=== PATIENT | female | born 1985 | race African-American/Black ===

== ENCOUNTER 2023-07-01 10:03 | Observation (INO) | payer BC, SELFPAY ==
--- NOTE | 2023-07-01 10:03 | OBADM ---
This patient, Natty Hunter, admitted to the OB room Labor/Delivery/Recovery 104 for observation. Patient/family oriented to hospital policies and general routines including ID bracelet, bed and alarms, visiting hours, pain management, procedures, bathroom and other care routines, personal items, smoking policy, room service/diet, and visiting hours. Patient/Family are encouraged to report perceived risks to care and to ask questions if they do not understand what they are told or what they should do.
--- NOTE | 2023-07-02 06:25 | PM.OBTRLD ---
OB - Triage/Final Diagnosis Visit Information Date of evaluation: 07/01/23 Reason for evaluation: threatened labor Comments/Additional reasons for admission: I have assessed the risk for this patient, Natty Hunter, and determined that she would benefit from observation care.
== END 2023-07-01 12:41 | disposition home or self-care (01) ==
PROVIDERS: Admitting Provider Obstetrics & Gynecology; PCP Internal Medicine Cardiovascular Disease; Visit Provider Obstetrics & Gynecology
DX: O47.1 False labor at or after 37 completed weeks of gestation (principal); Z3A.39 39 weeks gestation of pregnancy
CPT/HCPCS: G0378; G0379

== ENCOUNTER 2023-07-07 05:07 | Inpatient (IN) | payer BC, SELFPAY ==
[2023-07-07] VITALS (150 sets, daily range): BP systolic 75–164; BP diastolic 45–142; PULSE 65–150; RESP 20; TEMP 36.1–36.9; O2SAT 98–100; BMI 40.0
--- NOTE | 2023-07-07 05:39 | ADMGEN ---
This patient, Natty Hunter, was admitted to Labor/Delivery/Recovery 104-00. Patient/family oriented to hospital policies and general routines including ID bracelet, bed and alarms, visiting hours, pain management, procedures, bathroom and other care routines, personal items, smoking policy, room service/diet, and visiting hours. Information on how to activate the Rapid Response Team has been discussed. Patient/Family are encouraged to report perceived risks to care and to ask questions if they do not understand what they are told or what they should do.
[2023-07-07 05:59] LABS: Basophils Percent Auto 0.3 % (0.2-1.2); Eosinophils Absolute Auto 0.1 K/mm3 (0-0.3); Eosinophils Percent Auto 0.6 % (0-4.4); Hemoglobin 12.4 g/dL (12.0-15.0); Immature Granulocyte Absolute 0.03 K/mm3 (0.00-0.031); Immature Granulocyte Percent A 0.4 % (0-0.5); Lymphocytes Absolute Auto 1.68 K/mm3 (0.9-3.2); Lymphocytes Percent Auto 21.7 % (18.3-44.2); Mean Corpuscular Hemoglobin 25.3 pg (26-34); Mean Corpuscular Volume 81.5 fl (80-100); Mean Platelet Volume 10.5 fl (7.4-10.4); Monocytes Absolute Auto 0.5 K/mm3 (0.1-0.6); Monocytes Percent Auto 5.9 % (2.6-8.5); Neutrophils Absolute Auto 5.5 K/mm3 (1.3-6.7); Neutrophils Percent Auto 71.1 % (45.5-73.1); Platelet Count Result 280 k/mm3 (150-375); Red Blood Count 4.91 M/mm3 (4.2-5.4); Red Cell Distribution Width 17.2 % (11.5-14.5); White Blood Count 7.7 K/mm3 (4.5-10.0)
--- NOTE | 2023-07-07 06:19 | P.HP_ITS ---
H&P: HPI History of Present Illness Date/Time: 07/07/23 06:19 Chief Complaint: Eight Narrative: this is a 37-year-old 4 para 3 whose EDC is 07/04/2023 confirmed by 9 week ultrasound presents at 40 and 3 7th weeks gestation for induction of labor. has been uncomplicated. Her cervix is favorable. She is negative for group B strep PMFSH Family History Family History Grandparent Diabetes mellitus Grandparent Diabetes mellitus Social History Social History Smoking status: Never smoker Substance use: never Do You Feel Safe in your Home?: Yes Lack of Transportation: No Lack of Food: Never True Current Housing: I Have Housing Concerned About Future Housing: No Difficulty Paying Gas/Electric Bills: No Difficulty Paying for Meds: No Currently Unemployed: No Education: Bachelor's Degree Difficulty w/ Childcare or Family Care: No Spiritual care concerns: No Meds Home Medications and Allergies Home Medications Medication Instructions Recorded Confirmed Type ascorbic acid (vitamin C) 500 mg 500 mg PO DAILY 06/03/23 07/07/23 History chewable tablet cholecalciferol (vitamin D3) 125 125 mcg PO 3XW 06/03/23 07/07/23 History mcg (5,000 unit) capsule ferrous sulfate 325 mg (65 mg 325 mg PO 3XW 06/03/23 07/07/23 History iron) tablet prenat.vits,pool,vuw-pzrk-eounu 1 tablet PO DAILY 06/03/23 07/07/23 History Allergies Allergy/AdvReac Type Severity Reaction Status Date / Time aspirin Allergy Intermediate Rash Verified 07/07/23 05:40 pineapple Allergy Intermediate Rash Verified 07/07/23 05:40 Vital Signs Vital Signs - 24 hr 07/07/23 05:31 07/07/23 06:01 07/07/23 05:28 Pulse Rate 116 H 88 Blood Pressure 114/90 106/65 Oxygen Delivery Room Air Exam Const: General: cooperative, healthy appearing and comfortable Nutritional Appearance: average body habitus Orientation/consciousness: oriented to person, oriented to place and oriented to time HENMT: Head: normal to inspection Resp: Effort & Inspection: normal respiratory effort Cardio: Rate: regular rate Rhythm: regular rhythm Heart sounds: S1 breann l heart sound present and S2 normal heart sound present GI: Inspection: normal to inspection ( soft gravid uterus) : External Female Exam: normal external appearance Speculum Exam - Vagina: normal appearance of the vagina Speculum Exam - Cervix: normal appearance of the cervix ( cervix 3/75/1. AROM with minimal fluid. FHTs reassuring) H&P: Results Labs Labs: Short CBC 07/07/23 Range/Units 05:29 WBC 7.7 (4.5-10.0) K/mm3 Hgb 12.4 (12.0-15.0) g/dL Hct 40.0 (37.0-47.0) % Plt Count 280 (150-375) k/mm3 Assessment and Plan Assessment and plan (1) Term : Code(s): Z34.90 - Encounter for supervision of normal , unspecified, unspecified trimester Status: Acute Plan medical induction of labor. Spontaneous vaginal delivery expected. She is an epidural candidate
[2023-07-07 06:46] LABS: HIV 1/2 Ab P24 Ag Result Negative (Negative)
--- NOTE | 2023-07-07 11:36 | PM.OBPNLAB ---
Pain Control Date/time seen: 07/07/23 11:36 Pain control: tolerating well Comments: ucs increasing, wants epidural then low dose pit
[2023-07-07] MEDS: LACTATED RINGERS 1,000 ML 125 ML IV CONT ×2 (11:48→12:45)
--- NOTE | 2023-07-07 11:57 | WPDANESEPP ---
Anes - Eval Pre Procedure Procedure: labor epidural Date/Time: 07/07/23 11:57 Surgeon: Nadira Jones Preop Diagnosis: Pain during labor Pre Op Diagnosis: IOL Patient Data Age: 37 Gender: F Height: 1.5 m Weight: 90 kg Last Vital Signs Temp 36.4 C 07/07/23 10:13 Pulse 90 07/07/23 10:01 BP 113/73 07/07/23 10:01 O2 Del Method Room Air 07/07/23 05:28 Allergies Allergy/AdvReac Type Severity Reaction Status Date / Time aspirin Allergy Intermediate Rash Verified 07/07/23 05:40 pineapple Allergy Intermediate Rash Verified 07/07/23 05:40 Home Medications Medication Instructions Recorded Confirmed Type ascorbic acid (vitamin C) 500 mg 500 mg PO DAILY 06/03/23 07/07/23 History chewable tablet cholecalciferol (vitamin D3) 125 125 mcg PO 3XW 06/03/23 07/07/23 History mcg (5,000 unit) capsule ferrous sulfate 325 mg (65 mg 325 mg PO 3XW 06/03/23 07/07/23 History iron) tablet prenat.vits,pool,ahy-kdrg-bzpog 1 tablet PO DAILY 06/03/23 07/07/23 History Laboratory Tests 07/07/23 05:29 WBC 7.7 K/mm3 (4.5-10.0) RBC 4.91 M/mm3 (4.2-5.4) Hgb 12.4 g/dL (12.0-15.0) Hct 40.0 % (37.0-47.0) MCV 81.5 fl (80-100) MCH 25.3 L pg (26-34) MCHC 31.0 L g/dl (32-36) RDW 17.2 H % (11.5-14.5) Plt Count 280 k/mm3 (150-375) MPV 10.5 H fl (7.4-10.4) Immature Gran % (Auto) 0.4 % (0-0.5) Neut % (Auto) 71.1 % (45.5-73.1) Lymph % (Auto) 21.7 % (18.3-44.2) [place] % (Auto) 5.9 % (2.6-8.5) Eos % (Auto) 0.6 % (0-4.4) Baso % (Auto) 0.3 % (0.2-1.2) Lymph # (Auto) 1.68 K/mm3 (0.9-3.2) [place] # (Auto) 0.5 K/mm3 (0.1-0.6) Eos # (Auto) 0.1 K/mm3 (0-0.3) Baso # (Auto) 0.0 K/mm3 (0.0-0.1) Abs Immat Gran (auto) 0.03 K/mm3 (0.00-0.031) Absolute Neuts (auto) 5.5 K/mm3 (1.3-6.7) Absolute Nucleated RBC 0.0 K/mm3 (0.0-0.012) Nucleated RBC % 0.0 % (0.0-0.2) RPR Pending HIV 1&2 Ab/P24 Ag 4thGn Negative (Negative) Blood Type O Positive Antibody Screen Negative Patient hx anesthesia problems: none Family hx anesthesia problems: none Results Review: All pre-operative results and documents have been reviewed as part of the pre-operative evaluation. [facility] Family History Family History Grandparent Diabetes mellitus Grandparent Diabetes mellitus Social History Social History Smoking status: Never smoker Substance use: never Do You Feel Safe in your Home?: Yes Lack of Transportation: No Lack of Food: Never True Current Housing: I Have Housing Concerned About Future Housing: No Difficulty Paying Gas/Electric Bills: No Difficulty Paying for Meds: No Currently Unemployed: No Education: Bachelor's Degree Difficulty w/ Childcare or Family Care: No Spiritual care concerns: No Exam Day of Procedure 07/07/23 11:57 Patient weight: obese Heart: regular rate and rhythm Lungs: normal air movement Airway: Mallampati scale class II Neurological: alert and oriented
[2023-07-07] MEDS: OXYTOCIN 30 UNITS/NS 500 ML 30 UNITS/500 ML BAG 999 UNITS IV CONT (13:23)
[2023-07-07 14:02] LABS: Rapid Plasma Reagin Non-Reactive (NonReactive)
--- NOTE | 2023-07-07 16:20 | PM.OBPNLAB ---
Pain Control Date/time seen: 07/07/23 16:20 Pain control: tolerating well and epidural Pelvic Exam Dilation (cm): 5 Effacement (%): 90 station: 0 Amniotic membrane status: Leaking Contractions Monitor mode: Internal
--- NOTE | 2023-07-07 17:42 | PM.OBPRVD ---
OB - Vaginal Delivery Note Procedure Delivery date: 07/07/23 Events: Elective Induction of Labor Induction method: AROM Delivery augmentation: Pitocin Delivery monitor: External FHT and Internal Uterine Route of delivery: Episiotomy description: None Laceration Description: None Quantitative Blood Loss (ml): 61 Anesthesia type: Epidural Disposition: Floor Baby Date of : 07/07/23 Time of : 17:32 Weeks of gestation at delivery: 40 gender: Male presentation: vertex position: Right Occiput Anterior Placenta delivery description: Spontaneous Cord Vessel Description: 3 Vessels score one minute: 8 score five minutes: 9
--- NOTE | 2023-07-07 17:44 | PM.DS ---
DS: Admitting Diagnosis Discharge Date 07/08/2023 Admitting Diagnosis Term DS: Discharge Diagnosis Discharge Diagnosis (1) Term : Code(s): Z34.90 - Encounter for supervision of normal , unspecified, unspecified trimester Status: Acute DS: Summary Hospital Course Reason for hospitalization: patient was admitted for induction of labor on 07/07/2023 Hospital Course: patient underwent a successful spontaneous vaginal delivery with epidural anesthesia. Her hospital course unremarkable. She remained afebrile. She was up, voiding without difficulty again eating regular diet, ambulating, and general without complaints. Time Spent with Patient Time attestation: Total time spent providing and/or coordinating discharge services: Exam Const: General: cooperative, healthy appearing and comfortable Nutritional Appearance: average body habitus Orientation/consciousness: oriented to person, oriented to place and oriented to time Resp: Effort & Inspection: normal respiratory effort Cardio: Rate: regular rate Rhythm: regular rhythm Heart sounds: S1 normal heart sound present and S2 normal heart sound present GI: Inspection: normal to inspection ( Fundus firm below the umbilicus) DS: Data Data Completed and Pending Labs on day of discharge: Labs from last 24 hours 07/07/23 05:29 WBC 7.7 RBC 4.91 Hgb 12.4 Hct 40.0 MCV 81.5 MCH 25.3 L MCHC 31.0 L RDW 17.2 H Plt Count 280 MPV 10.5 H Immature Gran % (Auto) 0.4 Neut % (Auto) 71.1 Lymph % (Auto) 21.7 [place] % (Auto) 5.9 Eos % (Auto) 0.6 Baso % (Auto) 0.3 Lymph # (Auto) 1.68 [place] # (Auto) 0.5 Eos # (Auto) 0.1 Baso # (Auto) 0.0 Abs Immat Gran (auto) 0.03 Absolute Neuts (auto) 5.5 Absolute Nucleated RBC 0.0 Nucleated RBC % 0.0 RPR Non-reactive HIV 1&2 Ab/P24 Ag 4thGn Negative Blood Type O Positive Antibody Screen Negative Discharge Plan Discharge Attending physician on discharge: Orville Jamison Discharging Clinician: Orville Jamison Patient Disposition: Home, Self-Care Activity: may shower and pelvic rest Diet: heart healthy Wound Care Instructions: follow printed instructions Patient Instructions: Antibiotic Form Stand Alone Forms: General Discharge Information Follow-up/Referrals: Orville Jamison MD [Physician] - Discharge Medications: Continued ferrous sulfate 325 mg (65 mg iron) Tablet 325 mg PO 3XW ascorbic acid (vitamin C) 500 mg Tablet,Chewable 500 mg PO DAILY cholecalciferol (vitamin D3) 125 mcg (5,000 unit) Capsule 125 mcg PO 3XW prenat.vits,pool,zah-xkor-hwocu Tablet 1 tablet PO DAILY Date of admission: 07/07/23 05:07 Primary Care Provider: Everton,Michael Hernadez Admitting Provider: Orville Jamison Attending physician on admission: Orville Jamison Condition: Stable
[2023-07-07] MEDS: OXYTOCIN 30 UNITS/NS 500 ML 30 UNITS/500 ML BAG 125 UNITS IV CONT (18:05)
--- NOTE | 2023-07-07 20:30 | PC.NURSE ---
Patient transferred to post room #284 per wheelchair from labor and delivery. Support person present. Oriented to unit, room, information board, rooming in, admission packet and security measures. Patient verbalizes understanding.
[2023-07-08 00:45] VITALS: BP 113/69; PULSE 81; RESP 18; TEMP 36.3
[2023-07-08 05:19] LABS: Hematocrit 36.3 % (37.0-47.0)
--- NOTE | 2023-07-08 06:55 | PM.OBPNVD ---
OB - PN: Subj Subjective Date/time seen: 07/08/23 06:55 Patient comments: no complaints and pain well controlled baby status: doing well and nursing well OB - PN: Obj Data Labs 07/08/23 05:10 Labs: Laboratory Results - last 24 hr 07/07/23 07/08/23 05:29 05:10 Hgb 11.0 L Hct 36.3 L RPR Non-reactive Antibody Screen Negative OB - PN A/P Plan day: 1 Plan: routine care Time Spent With Patient Time: Total time spent is greater than 50% in coordination of care (as documented) at patient's floor/unit and/or counseling patient: Time with patient: less than 15 minutes Exam Const: General: cooperative, healthy appearing and comfortable Nutritional Appearance: average body habitus Orientation/consciousness: oriented to person, oriented to place and oriented to time Resp: Effort & Inspection: normal respiratory effort GI: Inspection: normal to inspection (fundus firm)
[2023-07-08 07:35] VITALS: BP 104/68; PULSE 73; RESP 18; TEMP 36.9; O2SAT 100
[2023-07-08] MEDS: MULTIVIT/MIN/PREN/FOL AC/IRON TABLET 1 TAB PO (08:28)
--- NOTE | 2023-07-08 08:50 | WPDANLDPN2 ---
Anes-Prog Note L&D Date/Time: 07/08/23 08:50 Comfortable throughout: labor and delivery Neuraxial method: epidural Epidural/Spinal procedure site: clean & non-tender Neuro status: Neuro function grossly intact. Cardiovascular status: normal Respiratory status: normal Airway patency: baseline Mental status: baseline Post-Op hydration status: normal Vital Signs: Last Vital Signs Temp 36.3 C L 07/08/23 00:45 Pulse 81 07/08/23 00:45 Resp 18 07/08/23 00:45 BP 113/69 07/08/23 00:45 Pulse Ox 100 07/07/23 20:20 O2 Del Method Room Air 07/07/23 05:28 Pain score (VAS): 2/10 I/O: Intake & Output 07/07/23 07/08/23 07/08/23 23:59 07:59 15:59 Intake Total 500 Output Total 95 Balance 405 Post-procedural complaints: none Patient feedback: Patient satisfied with anesthetic care.
--- NOTE | 2023-07-08 09:33 | PC.NURSE ---
[id number] Introductions were made and discussed with parents their goals for feeding their . mother has experience with , however; states this is not opening the mouth and is falling asleep after latching. Assessment of it is visualized that the lower tongue frenulum appears slightly tight and possibly restrictive with a recessed chin. Encouraged understanding of the benefits of skin to skin (demonstrating unwrapping and placing upright on her chest), stimulating with massage touch, changing positions to encourage wakefulness, how to watch for early feeding cues, responsive feeding, feeding on demand (aiming for 8-12 times in 24 hours, about every 2-3 hours), milk production, building/maintaining a milk supply, duration of feeding, signs of adequate intake/output and how to record on the feeding sheet. placed skin to skin upright on mother. Mother works well with her infant with encouragement and education. Mother voiced understanding of skin to skin, stimulating with massage touch, responsive feedings, hand expressed colostrum, talking to infant to encourage if it has been 2 -2.5 hours since the start of the last , to call if does not latch, difficulty waking to breastfeed, or if there is discomfort with . Resources used for education were facilitated with the visual educational handouts. Inpatient/outpatient resources provided with feeding sheet, name written on the communication board, and the mom/baby guide. Parents voiced understanding of information, demonstrated learning and will call if there is a request for assistance.
[2023-07-08 12:15] VITALS: BP 111/66; PULSE 77; RESP 16; TEMP 36.4; O2SAT 100
--- NOTE | 2023-07-08 13:24 | PC.NURSE ---
[id number] Consult requested to assist mother with . Mother works well with her . placed [id number] and mother demonstrated knowledge of stimulating for wakefulness to breastfeed. Mother has experience with but it has been 5 years and she breastfed for 13 months. Reminded mother of behaviors and assisting with a deeper latch. Infant demonstrates shallow latching with mother working independently with the football and cradle positioning. Mother consented to EBM with hand expression and a few drops were placed on a spoon and finger fed to . We practiced laid-back positioning to watch instinctual learning of mothers chest/breast for infant-led and infant was reluctant. We attempted with mother-led nursing with the assistance of LC and did latch for about 1 minute with rocking jaw motion, big, open, wide gape, mouth flanged and rounded cheek line with no dimpling, then let the breast go unable to maintain. Infant placed S2S upright on mother's breast so mother can eat her lunch. Reported to the Primary RN who will check a blood sugar.
--- NOTE | 2023-07-08 20:00 | PC.NURSE ---
Patient instructed to view the discharge video Mother & Baby Care, The First Two Weeks online using the QR code. Patient was given the opportunity and encouraged to ask questions. Patient verbalized understanding of information shared and has been given the mother/baby guide for home reference.
[2023-07-08 20:50] VITALS: BP 117/66; PULSE 80; RESP 20; TEMP 36.4
--- NOTE | 2023-07-09 06:53 | PM.OBPNVD ---
OB - PN: Subj Subjective Date/time seen: 07/09/23 06:53 Patient comments: no complaints and pain well controlled baby status: doing well and nursing well OB - PN: Obj Data Labs 07/08/23 05:10 OB - PN A/P Plan day: 2 Plan: routine care, discharge home and follow up 6 weeks Time Spent With Patient Time: Total time spent is greater than 50% in coordination of care (as documented) at patient's floor/unit and/or counseling patient: Time with patient: less than 15 minutes Exam Const: General: cooperative, healthy appearing and comfortable Nutritional Appearance: average body habitus Orientation/consciousness: oriented to person, oriented to place and oriented to time HENMT: Head: normal to inspection Resp: Effort & Inspection: normal respiratory effort Cardio: Rate: regular rate Rhythm: regular rhythm Heart sounds: S1 normal heart sound present and S2 normal heart sound present GI: Inspection: normal to inspection
[2023-07-09 09:13] VITALS: BP 108/65; PULSE 68; RESP 20; TEMP 36.6
[2023-07-09] MEDS: MULTIVIT/MIN/PREN/FOL AC/IRON TABLET 1 TAB PO (09:25)
--- NOTE | 2023-07-09 09:31 | PC.NURSE ---
[id number] Mother led the conversation with her experience so far, plan to feed her , and her ability to independently latch optimally without discomfort. Reminded mother to use good handwashing technique to prevent infection. Mother is feeding appropriately for growth of infant and understands stimulating to eat if needed and demonstrates working well with her . Mother states infant doesn't prefer the right breast and she offers that side first, the latches to the left breast independently with demonstrating good rocking jaw movement, lowering and appropriate pausing. Infant has had appropriate feedings in the last 24 hours meets the outcomes for weight, output, blood sugar and jaundice at this time. Mother states she is confident to continue effectively her infant at home, when to call for assistance, denies any additional assistance or education at this time after discussing and answering questions. Reinforced understanding of milk production, transition of milk, signs of adequate intake, transition of stool, prevention/relief of engorgement, plugged ducts, mastitis, responsive watching for feeding cues, the different methods of stimulating to breastfeed 1-3 hours after the start of the last feeding, community resources, and when to call a provider using the resource of the feeding sheet along with the mom and baby guide. Parents voiced understanding of the education shared. Reported to the Primary RN.
--- NOTE | 2023-07-09 11:12 | PC.NURSE ---
Patient was given the opportunity to view the discharge video Mother & Baby Care, The First Two Weeks and to ask questions. Patient declined viewing the video and has been given the mother/baby guide for home reference.
[2023-07-10 11:19] VITALS: BP 98/62; PULSE 96; RESP 18; TEMP 37; O2SAT 99
== END 2023-07-09 10:50 | disposition home or self-care (01) | DRG 807 ==
LOC: ANHLDR 17:46 → ANHOB2 20:37
PROVIDERS: Admitting Provider Obstetrics & Gynecology; PCP Internal Medicine Cardiovascular Disease; Visit Provider Obstetrics & Gynecology
DX: O80 Encounter for full-term uncomplicated delivery (principal); Z37.0 Single live birth; Z3A.40 40 weeks gestation of pregnancy
CPT/HCPCS: 36415; 85014; 85018; 85025; 86592; 86703; 86850; 86900; 86901; A9270; G0432; J2590; J2795; J7120

== ENCOUNTER 2023-07-15 11:16 | Outpatient (CLI) | payer BC, SELFPAY ==
--- NOTE | 2023-07-15 | ECG_ITS ---
Measurements Intervals [place] Rate: 69 P: 42 IA: 154 QRS: 38 QRSD: 75 T: 36 QT: 360 QTc: 387 Interpretive Statements SINUS RHYTHM NORMAL ECG NO PREVIOUS ECG AVAILABLE FOR COMPARISON Electronically Signed On 07-15-2023 11:45:18 [employer] by Scott Rodriguez D.O.
== END 2023-07-15 11:17 | disposition home or self-care (01) ==
LOC: ANHLAB 11:18
PROVIDERS: PCP Internal Medicine Cardiovascular Disease; Visit Provider Obstetrics & Gynecology
DX: R00.2 Palpitations (principal)
CPT/HCPCS: 93005